=== PATIENT | male | born 1980 | race African-American/Black ===

== ENCOUNTER 2021-01-12 02:18 | Emergency (ER) | payer SELFPAY ==
[~2021-01-12] VITALS: Ht 165.1 cm; Wt 104.0 kg
[2021-01-12 02:23] VITALS: BP 156/78
[2021-01-12] MEDS ORDERED: GUAI-741 MT (04:33)
[2021-01-12] MEDS ORDERED: AMOX-424 MT (04:33)
[2021-01-12] MEDS ORDERED: ACETAMINOPHEN 325MG TABLET PO ONE (04:45)
[2021-01-12] MEDS ORDERED: IBUPROFEN 400MG TABLET PO ONE (04:45)
== END 2021-01-12 05:53 | disposition home or self-care (01) ==
LOC: ER 02:18
DX: J32.9 Chronic sinusitis, unspecified (principal)
CPT/HCPCS: 71045; 99283

== ENCOUNTER 2021-02-18 00:37 | Emergency (ER) | payer SELFPAY ==
[~2021-02-18] VITALS: Ht 167.6 cm; Wt 105.0 kg
[~2021-02-18 00:37] MED LIST: AMOX-424 MT; GUAI-741 MT
[2021-02-18] MEDS ORDERED: ACETAMINOPHEN 325MG TABLET PO ONE (01:00)
[2021-02-18] MEDS ORDERED: TOPUD MT (01:46)
[2021-02-18] MEDS ORDERED: SULF1TAB48 MT (01:46)
[2021-02-18 01:50] VITALS: BP 145/92
== END 2021-02-18 02:34 | disposition home or self-care (01) ==
LOC: ER 00:37
DX: L03.012 Cellulitis of left finger (principal); I10 Essential (primary) hypertension
CPT/HCPCS: 73140; 99283

== ENCOUNTER 2022-01-04 19:26 | Emergency (ER) | payer SELFPAY ==
[~2022-01-04 19:26] MED LIST changes: +SULF1TAB48 MT; +TOPUD MT
[2022-01-05] MEDS ORDERED: IBUP-2029 MT (15:54)
== END 2022-01-04 22:52 | disposition left against medical advice (07) ==
LOC: ER 19:26
DX: Z53.21 Procedure and treatment not carried out due to patient leaving prior to being seen by health care provider (principal)

== ENCOUNTER 2022-01-05 12:06 | Emergency (ER) | payer MEDICAID ==
[~2022-01-05] VITALS: Ht 165.1 cm; Wt 109.0 kg
[2022-01-05 12:28] VITALS: BP 156/89
[2022-01-05] MEDS ORDERED: IBUPROFEN 600MG TABLET PO ONE (15:15)
[2022-01-05] MEDS ORDERED: IBUP-2029 MT (15:54)
== END 2022-01-05 16:45 | disposition home or self-care (01) ==
LOC: ER 12:06
DX: S90.31XA Contusion of right foot, initial encounter (principal); R03.0 Elevated blood-pressure reading, without diagnosis of hypertension; W01.0XXA Fall on same level from slipping, tripping and stumbling without subsequent striking against object, initial encounter; Y93.89 Activity, other specified; Y92.89 Other specified places as the place of occurrence of the external cause
CPT/HCPCS: 73630; 99283; Z7610

== ENCOUNTER 2023-06-01 23:30 | Emergency (ER) | payer SELFPAY ==
[~2023-06-01] VITALS: Ht 165.1 cm; Wt 109.4 kg
[~2023-06-01 23:30] MED LIST changes: +IBUP-2029 MT
[2023-06-02 00:44] VITALS: O2SAT 100
[2023-06-02] MEDS: DEXAMETHASONE 10 MG/ML VIAL IM ONE (03:00)
[2023-06-02] MEDS: KETOROLAC 60MG/2ML VIAL IM ONE (03:00)
[2023-06-02] MEDS ORDERED: NAPR275T96 MT (04:42)
[2023-06-02 04:55] VITALS: BP 139/88; PULSE 82; RESP 15; TEMP 97.9
== END 2023-06-02 04:56 | disposition home or self-care (01) ==
LOC: ER 23:30
DX: J02.9 Acute pharyngitis, unspecified (principal); Z79.899 Other long term (current) drug therapy
CPT/HCPCS: 99284; 87430; 87070; 96372; J1100; J1885